=== PATIENT | female | born 1970 | race Caucasian/White ===

== ENCOUNTER 2022-12-23 17:54 | Emergency (ER) | payer OTHER ==
[2022-12-23] MEDS ORDERED: Sodium Chloride 0.9% 1,000 ML IV ONE (20:02)
[2022-12-23] MEDS ORDERED: Meclizine 25 MG Tab PO ONE (20:03)
[2022-12-23 20:12] LABS: BASOPHILS ABSOLUTE AUTO 0.04 K/uL (0.00-0.10); BASOPHILS PERCENT AUTO 0.5 % (0.1-1.3); EOSINOPHILS ABSOLUTE AUTO 0.17 K/uL (0.00-0.40); HEMATOCRIT 37.7 % (34.3-46.0); HEMOGLOBIN 12.4 g/dL (11.2-15.5); IMMATURE GRAN ABSOLUTE AUTO 0.02 K/uL (0.00-0.23); IMMATURE GRAN PERCENT AUTO 0.2 % (0.0-0.7); LYMPHOCYTES ABSOLUTE AUTO 3.34 K/uL (0.8-3.3); LYMPHOCYTES PERCENT AUTO 39.5 % (11.4-47.7); MEAN CORPUSCULAR HEMOGLOBIN 27.2 pg (31.6-35.5); MEAN CORPUSCULAR HGB CONC 32.9 g/dL (31.6-35.5); MEAN CORPUSCULAR VOLUME 82.7 fL (81.4-99.0); MONOCYTES ABSOLUTE AUTO 0.56 K/uL (0.20-0.90); MONOCYTES PERCENT AUTO 6.6 % (3.3-12.6); NEUTROPHILS ABSOLUTE AUTO 4.33 K/uL (1.0-7.6); NEUTROPHILS PERCENT AUTO 51.2 % (40.0-78.1); PLATELET COUNT,PLT 267 K/uL (130-375); RED BLOOD CELL COUNT 4.56 M/uL (3.77-5.24); WHITE BLOOD CELL COUNT,WBC 8.5 K/uL (3.2-11.0)
[2022-12-23 20:26] LABS: CREATININE 0.7 mg/dL (0.6-1.0); EST CRCL DRUG DOSING (CG) 83.63 mL/min
== END 2022-12-23 21:19 | disposition home or self-care (01) ==
LOC: JP.ED 17:54
DX: H81.10 Benign paroxysmal vertigo, unspecified ear (principal); Z72.0 Tobacco use
CPT/HCPCS: 36415; 80048; 85025; 99284; A9270; 99283